=== PATIENT | female | born 1975 | race African-American/Black ===

== ENCOUNTER 2017-08-16 21:40 | Emergency (ER) | payer MEDICAID, OTHER ==
[~2017-08-16] VITALS: Ht 165.1 cm; Wt 50.0 kg
[2017-08-16 21:50] VITALS: BP 118/70; PULSE 83; RESP 16; TEMP 98.8; O2SAT 100
[2017-08-16] MEDS ORDERED: ACETAMINOPHEN/HYDROcodone 325 MG/5 MG TAB PO ONE (22:15)
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
[2017-08-16] MEDS ORDERED: DICL50TA3 PO (22:26)
[2017-08-16] MEDS ORDERED: CYCL10TA PO (22:26)
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
== END 2017-08-16 23:36 | disposition home or self-care (01) ==
LOC: NEPD 21:40
DX: S16.1XXA Strain of muscle, fascia and tendon at neck level, initial encounter (principal); V49.59XA Passenger injured in collision with other motor vehicles in traffic accident, initial encounter; Z72.0 Tobacco use; Z88.0 Allergy status to penicillin; Z88.2 Allergy status to sulfonamides
CPT/HCPCS: 72040; 99283